=== PATIENT | male | born 1980 | race Caucasian/White ===

== ENCOUNTER 2022-12-17 21:25 | Emergency (ER) | payer BC ==
[~2022-12-17] VITALS: Ht 185.4 cm; Wt 173.6 kg
[2022-12-17] MEDS ORDERED: NO HOME MEDS (22:50)
[2022-12-18 00:06] VITALS: BP 135/92
== END 2022-12-18 00:03 | disposition home or self-care (01) ==
LOC: ER 21:27
DX: S43.015A Anterior dislocation of left humerus, initial encounter (principal); S42.292A Other displaced fracture of upper end of left humerus, initial encounter for closed fracture; W18.39XA Other fall on same level, initial encounter; Y93.89 Activity, other specified; Y92.89 Other specified places as the place of occurrence of the external cause; Y99.8 Other external cause status
CPT/HCPCS: 23650; 73030; 99284